=== PATIENT | male | born 1985 | race Caucasian/White ===

== ENCOUNTER 2023-11-24 10:44 | Emergency (ER) | payer BC ==
[~2023-11-24] VITALS: Ht 182.9 cm; Wt 84.1 kg
[~2023-11-24 10:44] MED LIST: NAPROSYN 2250 MG/TAB PO
[2023-11-24 10:49] VITALS: TEMP 97.8
[2023-11-24] MEDS ORDERED: Tdap Vaccine 0.5 ML SYRINGE IM ONE (11:45)
[2023-11-24 12:00] VITALS: BP 117/70; PULSE 74
== END 2023-11-24 12:06 | disposition home or self-care (01) ==
LOC: COL.ER 10:44
DX: S61.215A Laceration without foreign body of left ring finger without damage to nail, initial encounter (principal); S61.217A Laceration without foreign body of left little finger without damage to nail, initial encounter; Z23 Encounter for immunization; W26.0XXA Contact with knife, initial encounter